=== PATIENT | male | born 1970 | race Caucasian/White ===

== ENCOUNTER 2023-05-29 18:16 | Emergency (ER) | payer OTHER, SELFPAY ==
[2023-05-29 18:25] VITALS: BP 117/56; PULSE 76; RESP 16; TEMP 36.8; O2SAT 99
[2023-05-29 18:32] VITALS: BP 117/56; PULSE 76; RESP 16; TEMP 36.8; O2SAT 99
--- NOTE | 2023-05-29 19:07 | ED.GENADULT ---
HPI - General Adult General Chief complaint: Eye Problems Stated complaint: Left eye Source: patient Mode of arrival: ambulatory Limitations: no limitations History of Present Illness HPI narrative: Patient presents for evaluation of left eye irritation. Symptom onset yesterday. He was mowing lawn and a bunch of dust blew into his eyes. He now reports redness, itching, tearing and some photophobia in the left eye. He denies any sensation of foreign body in the left eye. He does feel like the left eye is ?scratchy?. He denies any visual disturbance. He wears glasses but not contacts. He is not diabetic. He did try taking zyrtec. Related Data Home Medications Medication Instructions Recorded Confirmed meloxicam 7.5 mg tablet 7.5 mg PO DIRECTED 05/29/23 05/29/23 Allergies Allergy/AdvReac Type Severity Reaction Status Date / Time No Known Allergies Allergy Verified 05/29/23 18:32 Review of Systems Review of Systems: CONSTITUTIONAL: Denies fever, chills, or sweats. EYES: Reports itching, redness, tearing in the left eye. Reports left eye feeling ?scratchy?. Denies sensation of foreign body in the left eye. Reports photophobia. Denies visual disturbance. ENT: Denies rhinorrhea, congestion, sore throat, or otalgia. CARDIOVASCULAR: Denies chest pain, palpitations, or edema. RESPIRATORY: Denies cough or dyspnea. GASTROINTESTINAL: Denies abdominal pain, nausea, vomiting, or diarrhea. GENITOURINARY: Denies dysuria or hematuria. SKIN: Denies rash or itching. MUSCULOSKELETAL: Denies back pain, joint pain, or myalgia. NEUROLOGIC: Denies headache, numbness, dizziness, or weakness. PSYCHIATRIC: Denies anxiety or depression. [facility] Past Medical History Medical History No pertinent past medical history Surgical History Surgical History No pertinent past surgical history Family History Family History Mother Family history non-contributory Social History Social History Smoking status: Never smoker Alcohol intake: former Additional living arrangements comments: Lives with girlfriend Sexual Orientation (if Verbalized by the Patient): Straight or Heterosexual Spiritual care concerns: No Exam Narrative: GENERAL: Well-appearing, well-nourished, and in no acute distress. HEAD: Normocephalic, atraumatic. EYES: PERRLA and EOMI. Left conjunctival injection and tearing. Left eye was evaluated with fluorescein and Wood's lamp-no definitive area of dye uptake noted. ENT: Nares clear, no rhinorrhea or epistaxis. Mucous membranes moist. Oropharynx without tonsillar hypertrophy exudate or other lesions. Bilateral TMs pearly holly nonbulging NECK: Supple. No adenopathy or masses. No carotid bruits or JVD CHEST: Clear to auscultation. No respiratory distress. No wheezes rales or rhonchi HEART: Regular rate and rhythm. No murmur heard. Normal peripheral pulses. ABDOMEN: Soft, nontender, nondistended, normal active bowel sounds. EXTREMITIES: Normal range of motion. No edema. SKIN: Warm, dry, no rash. NEURO: No focal deficits. Alert and oriented x3. PSYCH: Normal mood and affect. Course Course Emergency Course: This is a 52-year-old male who presented for evaluation of redness, tearing, itching to the left eye. I did not appreciate a distinct, large corneal abrasion, however he does feel like there is a ?scratchy? on his eye. This is likely allergic conjunctivitis but he may have a small corneal abrasion. Will discharge with Naphcon, Claritin, erythromycin. I did not appreciate any opacity to suggest keratitis. I advised that he follow-up outpatient for further evaluation treatment. For worsening symptoms or visual disturbance he should go immediately to the [facility]
== END 2023-05-29 19:15 | disposition home or self-care (01) ==
PROVIDERS: Emergency Provider Nurse Practitioner; PCP Physician Assistant
DX: H10.12 Acute atopic conjunctivitis, left eye (principal); S05.02XA Injury of conjunctiva and corneal abrasion without foreign body, left eye, initial encounter; X58.XXXA Exposure to other specified factors, initial encounter
CPT/HCPCS: 99213; A9270; G0463

== ENCOUNTER 2024-02-14 17:59 | Emergency (ER) | payer OTHER, SELFPAY ==
[2024-02-14 18:08] VITALS: BP 125/70; PULSE 79; RESP 20; TEMP 37.3; O2SAT 98
--- NOTE | 2024-02-14 18:41 | ED.EAR ---
HPI - Ear Problem General Chief complaint: Ear Stated complaint: ear/cough Source: patient Mode of arrival: ambulatory Limitations: no limitations History of Present Illness HPI Narrative: 53-year-old male presented for complaint of left ear pain, onset today around noon. Reports muffled hearing and ringing. Endorses about 3 days of sinus congestion. Has not taken anything for pain. Denies ear drainage, cough, sob, wheezing, n/v/d/f/c. MD Complaint: ear pain Related Data Home Medications Medication Instructions Recorded Confirmed meloxicam 7.5 mg tablet 7.5 mg PO DIRECTED 05/29/23 05/29/23 alfuzosin 10 mg tablet,extended mg PO 02/14/24 release 24 hr hydrocodone 10 mg-acetaminophen tablet 02/14/24 325 mg tablet Allergies Allergy/AdvReac Type Severity Reaction Status Date / Time No Known Allergies Allergy Verified 05/29/23 18:32 Review of Systems Review of Systems: CONSTITUTIONAL: Denies malaise, chills, or fever. EYES: Denies visual changes, redness, or discharge. ENT: Denies sore throat. Reports ear pain,rhinorrhea, congestion CARDIOVASCULAR: Denies chest pain, palpitations, or edema. RESPIRATORY: Denies cough or dyspnea. GASTROINTESTINAL: Denies abdominal pain, nausea, vomiting, diarrhea SKIN: Denies rash or itching. MUSCULOSKELETAL: Denies myalgia. NEUROLOGIC: Denies headache. All systems reviewed & are unremarkable except as noted in HPI and below PMFSH Past Medical History Medical History No pertinent past medical history Surgical History Surgical History No pertinent past surgical history Family History Family History Mother Family history non-contributory Social History Social History Smoking status: Never smoker Alcohol intake: former Additional living arrangements comments: Lives with girlfriend Sexual Orientation (if Verbalized by the Patient): Straight or Heterosexual Spiritual care concerns: No Comments At time of signature, agree with nursing past medical, surgical, social and family history. There is no relevant family history pertinent to the presenting complaint Exam Narrative: GENERAL: Well-appearing, EYES: PERRLA, conjunctivae clear ENT: Nares clear. Mucous membranes moist. Right TM pearly holly with dull light reflex; Left TM erythematous, bulging and intact; canal not erythematous, no drainage, no tragal tenderness. Oropharynx not erythematous without lesions. NECK: Supple. No lymphadenopathy CHEST: Clear to auscultation, breath sounds equal. HEART: Regular rate and rhythm. No murmur heard. SKIN: Warm, dry, no rash. NEURO: Alert and oriented x3. PSYCH: Normal mood and affect Course Course Emergency Course: Patient is aware of diagnosis, understands and agrees to treatment plan. Anticipatory guidance given. Patient agrees to follow-up as directed and is aware of reasons to seek care at the emergency department. Portions of this record may have been created with voice recognition software Level of Care: Express Care Visit Vital Signs Vital signs: Vital Signs Temperature 99.1 F 02/14/24 18:08 Pulse Rate 79 02/14/24 18:08 Respiratory Rate 20 02/14/24 18:08 Blood Pressure 125/70 02/14/24 18:08 Pulse Oximetry 98 02/14/24 18:08 Oxygen Delivery Room Air 02/14/24 18:08 Temperature 99.1 F 02/14/24 18:08 Pulse Rate 79 02/14/24 18:08 Respiratory Rate 20 02/14/24 18:08 Blood Pressure 125/70 02/14/24 18:08 Pulse Oximetry 98 02/14/24 18:08 Oxygen Delivery Room Air 02/14/24 18:08 Reviewed Medical Decision Making MDM Narrative Medical decision making narrative: discussed physical exam findings consistent with left AOM. Advised supportive measures and signs/symptoms to go to
== END 2024-02-14 19:04 | disposition home or self-care (01) ==
PROVIDERS: Emergency Provider Nurse Practitioner Family; PCP Physician Assistant
DX: H66.92 Otitis media, unspecified, left ear (principal)
CPT/HCPCS: 99203; G0463